=== PATIENT | male | born 2000 | race Caucasian/White ===

== ENCOUNTER 2021-08-17 18:54 | Emergency (ER) | payer OTHER, SELFPAY ==
[2021-08-17 19:19] VITALS: BP 177/110; PULSE 105; RESP 16; TEMP 36.6; O2SAT 99; BMI 34.9
--- NOTE | 2021-08-17 20:19 | W.ED.EYEPROB ---
HPI - Eye Problem General: Chief complaint: Eye Problems Stated complaint: Rt Eye Injury Time Seen by Provider: 08/17/21 20:18 History of Present Illness: HPI Narrative: Patient is a 21-year-old male comes to the ED with a right thigh injury. Patient said he was chopping some wood and a piece of wood hit his right eye. Afterwards he rinsed his eye out with water. He has had some pain over the middle of his eye along with some redness since injury. He does not feel like there is an actual foreign body there and he said no bleeding or discharge from either eye. He has a little blurry vision out of right eye as well. Patient is up-to-date on his tetanus. Associated symptoms: Denies fever(s), headache(s), nausea, neck pain or vomiting Review of Systems Const: Denies: fever(s), chills or fatigue Eyes: Reports: blurry vision (right eye), eye discomfort (right eye) and eye redness (right eye); Denies: change in vision ENMT: Denies: throat pain, odynophagia, nasal discharge or nasal congestion Card: Denies: chest pain, palpitations, edema, swelling of feet/ankles, dyspnea on exertion or orthopnea Resp: Denies: dyspnea, productive cough or non-productive cough GI: Denies: abdominal pain, nausea, vomiting, diarrhea, constipation or hematochezia : Denies: flank pain, difficulty urinating, dysuria or hematuria Musc: Denies: neck pain, back pain or extremity swelling Skin/Breast: Denies: rash or new lesions Neuro: Denies: headache(s), numbness in extremities or weakness in extremities [facility] ED PFSH: Medical History No pertinent family history Surgical History No pertinent past surgical history Social History Smoking and tobacco status: never smoked Alcohol intake: unknown Lives independently: No Household members: family Marital status: Single service: No Current occupational status: employed Current gender identity: Male Physical Exam Const: COMMON NORMALS: no acute distress, patient oriented x3, healthy appearing and alert GENERAL APPEARANCE: cooperative HENMT: COMMON NORMALS: normocephalic HEAD & SCALP: normocephalic MOUTH: Normal oral and palatal mucosa present THROAT: posterior oropharynx normal and uvula midline Eye: COMMON NORMALS: Equal, round and reactive pupils present and EOMs intact bilaterally CONJUNCTIVA: Yes conjunctival abnormal positive right conjunctival injection diffuse CORNEA: Yes fluorescein used (Small corneal abrasion seen.) PUPIL: Yes Equal, round and reactive pupils present Neck/C-Spine: COMMON NORMALS: supple GENERAL: Yes normal visual inspection Resp: COMMON NORMALS: normal respiratory effort, No retractions, No use of accessory muscles and clear to auscultation bilaterally AUSCULTATION: clear to auscultation bilaterally Cardio: COMMON NORMALS: regular rate, regular rhythm, S1 normal heart sound present, S2 normal heart sound present, No gallops present (Cardio), No clicks present (Cardio), No murmurs present (Cardio) and Peripheral pulses 2+ throughout RATE: regular rate RHYTHM: regular rhythm HEART SOUNDS: S1 normal heart sound present and S2 normal heart sound present PERIPHERAL PULSES: Peripheral pulses 2+ throughout GI: COMMON NORMALS: Normal to inspection, nondistended, normoactive bowel sounds present, Soft to palpation, non-tender and no masses PALPATION: Yes Soft to palpation : COMMON NORMALS: Yes no CVA tenderness BLADDER/KIDNEY EXAM: Yes no CVA tenderness Back/Pelvis: COMMON NORMALS: no CVA tenderness Extremity: COMMON NORMALS: normal to inspection Neuro: COMMON NORMALS: patient oriented x3 and moves all extremities SENSORIUM/ORIENTATION: Yes alert Skin: GENERAL SKIN EXAM: dry skin Course Vital Signs: Vital signs: Vital Signs Temperature 98.8 F 08/17/21 21:28 Pulse Rate 89 08/17/21 21:28 Respiratory Rate 16 08/17/21 21:28 Blood Pressure 141/83 08/17/21 21:28 Pulse Oximetry 97 08/17/21 21:28 MDM - Eye Problem MDM Narrative: Medical decision making narrative: Patient is a 21-year-old male comes to the ED with right eye complaint. Patient says piece of wood hit his eye while out cutting down some trees. He has some pain in right eye, blurriness and eye redness. No visible foreign body seen. Eye was irrigated extensively with Eye-Stream and then tetracaine was used in eye to help with pain during exam. Fluorescein dye exam done and a small corneal abrasion was noted. Patient was diagnosed with a corneal abrasion and discharged home with erythromycin eye ointment. Patient was given the contact information for [facility] and told to call them on Thursday. He was also told if he is not having any improvement in the next 24 to 48 hours to come back to the ED for reevaluation. Patient understood agree with plan. Discharge Plan Discharge Patient Disposition: Home Clinical Impression: Corneal abrasion Qualifiers: Encounter type: initial encounter Laterality: right Qualified Code(s): S05.01XA - Injury of conjunctiva and corneal abrasion without foreign body, right eye, initial encounter Condition: Stable Prescriptions: New erythromycin 5 mg/gram (0.5 %) ointment 1 applic ophthalmic (eye) QID 5 Days Qty: 3.5 RF: 0 No Action ciprofloxacin HCl [Cipro] 500 mg tablet 500 mg PO BID Qty: 14 RF: 0 metronidazole [Flagyl] 500 mg tablet 500 mg PO BID Qty: 14 RF: 0 Discharge Orders: Discharge ED (Routine); Ordered 08/17/21 Ordered By: Ok Healy Discharge Diet: Regular Discharge Activity: Increase activity as tolerated Patient Instructions: Corneal Abrasion (DC) Activity Restrictions/Additional Instructions: Follow-up with medical provider as directed. Call [facility] on Thursday phone number is [phone]. Address is [facility] [address] Chon [place]. take medications as prescribed. Return to the ER or your medical provider if condition worsens. Please read and understand discharge instructions. If any questions, please ask. Coding Level of Care Code ED Transfer Station Attendant for Farnaz Girard Exam Comprehensive
[2021-08-17 21:28] VITALS: BP 141/83; PULSE 89; RESP 16; TEMP 37.1; O2SAT 97
== END 2021-08-17 21:40 | disposition home or self-care (01) ==
PROVIDERS: Emergency Provider Physician Assistant
DX: S05.01XA Injury of conjunctiva and corneal abrasion without foreign body, right eye, initial encounter (principal); W20.8XXA Other cause of strike by thrown, projected or falling object, initial encounter
CPT/HCPCS: 99283

== ENCOUNTER → 2024-02-17 15:32 | Outpatient (BNVA) | payer OTHER, SELFPAY | PROVIDERS: Visit Provider Registered Nurse Neonatal Intensive Care | DX: Z20.822 Contact with and (suspected) exposure to COVID-19 (principal); J06.9 Acute upper respiratory infection, unspecified | CPT/HCPCS: 87426 ==

== ENCOUNTER → 2024-09-06 15:47 | Outpatient (BNVA) | payer OTHER, SELFPAY | PROVIDERS: Visit Provider Emergency Medicine | DX: R42 Dizziness and giddiness (principal); B34.9 Viral infection, unspecified | CPT/HCPCS: 82962; 87400 ==